=== PATIENT | female | born 1955 | race Caucasian/White ===

== ENCOUNTER 2022-03-17 10:37 | Observation (INO) | payer OTHER ==
[2022-03-17 10:57] LABS: Absolute Lymphocytes (CBC) 1.5 K/uL (0.7-4.9); Hematocrit 27.8 % (36.0-45.0); Lymphocytes % 25.4 % (15.3-44.8); MCV 88.4 fL (80-100); MPV 7.8 fL (7.6-11.3); RBC Red Blood Cell Count 3.15 M/uL (3.86-4.86)
[2022-03-17 11:03] LABS: Protime INR 1.12
--- NOTE | 2022-03-17 11:15 | RAD REPORT ---
EXAM DESCRIPTION: RAD - Chest Single View - 03/17/2022 11:05 am CLINICAL HISTORY: ams COMPARISON: None TECHNIQUE: AP portable chest image was obtained 03/17/2022 11:05 am in supine position. FINDINGS: No focal lung parenchymal process. Bilateral breast implants increased density over the lo wer lung flanagan. Lung volumes are shallow. A mild edema or infiltrate could be masked in this setting . Heart size is normal for supine portable imaging. No abnormal vascular engorgement. No measurable pleural effusion and no pneumothorax. No acute bony abnormality seen. No acute aortic findings suspected. IMPRESSION: No acute cardiopulmonary process. Exam limitations could mask a mild edema for infiltrate.
--- NOTE | 2022-03-17 11:17 | RAD REPORT ---
EXAM DESCRIPTION: CT - Head Brain Wo Cont - 03/17/2022 11:04 am CLINICAL HISTORY: Mental status change, unknown cause COMPARISON: No comparisons TECHNIQUE: Axial 5 mm thick images of the head were obtained without IV contrast. All CT scans are performed using dose optimization technique as appropriate and may include automated exposure control or mA/KV adjustment according to patient size. FINDINGS: No intracranial hemorrhage, mass, edema or shift of mid-line structures. No acute infarcti on changes seen. No cortical edema or sulcal effacement. Ventricles are normal. Minimal scattered chr onic ischemic changes are seen. No significant atrophy changes are noted. Arterial and physiologic ca lcifications are seen. Mastoid air cells and visualized portions of the paranasal sinuses are clear. No acute bony findings. Lateral left frontal bone craniotomy changes are present. IMPRESSION: No acute intracranial finding identifiable.
[2022-03-17 11:40] LABS: SARS-CoV-2 Antigen Rapid Res Negative (Negative)
[2022-03-17 11:43] LABS: ALT/SGPT 36 U/L (13-56); AST/SGOT 34 U/L (15-37); Albumin 3.4 g/dL (3.4-5.0); Alkaline Phosphatase 92 U/L (45-117); BUN Blood Urea Nitrogen 32 mg/dL (7-18); Bicarbonate 23 mmol/L (21-32); Bilirubin Direct 0.2 mg/dL (0-0.2); Bilirubin Total 0.6 mg/dL (0.2-1.0); Glomerular Filtration Rate 16 ml/min (=/>90); Glucose Level 127 mg/dL (74-106); Potassium 4.7 mmol/L (3.5-5.1); Protein, Total 7.2 g/dL (6.4-8.2); Sodium Level 129 mmol/L (136-145)
[2022-03-17 13:18] LABS: Barbiturates NEGATIVE (NEGATIVE); Benzodiazepines POSITIVE (NEGATIVE); Cocaine NEGATIVE (NEGATIVE); METHAMPHETAM NEGATIVE (NEGATIVE); Methadone NEGATIVE (NEGATIVE); Opiates NEGATIVE (NEGATIVE); Phencyclidine NEGATIVE (NEGATIVE); THC Cannibis NEGATIVE (NEGATIVE)
--- NOTE | 2022-03-17 13:48 | EDPHYS ---
Physician Documentation [facility] Name: Alisa Avina Age: 67 yrs Sex: Female : 1955 Arrival Date: 03/17/2022 Time: 10:43 Bed 18 Private MD: ED Physician Konstantin Mercado HPI: 03/17 10:44 This 67 yrs old Female presents to ER via Unassigned with complaints of altered mental ms3 status. 10:44 The patient presents with decreased responsiveness. Onset: The symptoms/episode ms3 began/occurred Patient was dropped off by [facility] at [facility] and staff noted patient to have decreased responsiveness. Possible causes: drug use, alcohol, has a history of chronic alcohol abuse. Associated signs and symptoms:. Current symptoms: In the emergency department the patient's symptoms are unchanged from the initial presentation, despite EMS interventions. 67-year-old female presents via [facility] from [facility]. EMS states patient was dropped off at rest was placed via Uber and intake staff noted patient to have decreased mental status. EMS was called. 2 mg intranasal Narcan was administered without improvement of patient's symptoms. While EMS in the exam room patient's addiction counselor called stating patient's drugs of choice are tramadol and alcohol.. Historical: - Allergies: 10:43 Unable to obtain; aa5 - Home Meds: 11:01 folic acid 1 mg Oral tab 1 tab once daily [Active]; lamotrigine 25 mg oral TbDi 1 tab aa5 once daily [Active]; lisinopril 10 mg Oral tab once daily [Active]; promethazine 25 mg Oral tab every 6hrs PRN [Active]; pantoprazole 40 mg oral grps 2 times per day [Active]; tizanidine 4 mg oral cap every 8 hours for muscle spasm [Active]; lamotrigine 200 mg oral tr24 BID [Active]; baclofen 10 mg oral tab 3 times per day [Active]; - PMHx: 10:43 Unable to Obtain; aa5 - PSHx: 10:43 Unable to Obtain; aa5 - Immunization history:: Adult Immunizations unknown. - Social history:: Smoking status: unknown. ROS: 10:44 Unable to obtain ROS due to altered mental status. ms3 Exam: 10:44 Constitutional: This is a well developed, well nourished patient who is awake, alert, ms3 and in no acute distress. Head/Face: Normocephalic, atraumatic. Neck: Trachea midline, no cervical lymphadenopathy. Supple, full range of motion without nuchal rigidity, or vertebral point tenderness. No Meningismus. Chest/axilla: Normal chest wall appearance and motion. Nontender with no deformity. Cardiovascular: Regular rate and rhythm with a normal S1 and S2. No gallops, murmurs, or rubs. Normal PMI, no JVD. No pulse deficits. Respiratory: Lungs have equal breath sounds bilaterally, clear to auscultation and percussion. No rales, rhonchi or wheezes noted. No increased work of breathing, no retractions or nasal flaring. Abdomen/GI: Soft, non-tender, with normal bowel sounds. No distension or tympany. No guarding or rebound. No evidence of tenderness throughout. 10:44 MS/ Extremity: Pulses equal, no cyanosis. Neurovascular intact. Full, normal range of motion. 10:44 Skin: Well-healed scars on bilateral wrists. 10:44 Neuro: Mentation: sleepy, responsive to pain, Motor: moves all fours, the no evidence of posturing, Deep tendon reflexes are normal, seizure activity, is not displayed by the patient, Abnormal movements: there are no abnormal movements. 11:53 ECG was reviewed by the Attending Physician. ms3 Vital Signs: 10:43 BP 120 / 75; Pulse 75; Resp 19 S; Temp 97.0(TE); Pulse Ox 94% on R/A; aa5 11:27 BP 133 / 84; Pulse 68; Resp 20; Pulse Ox 97% ; mb9 11:46 BP 126 / 79; Pulse 68; Resp 15; Pulse Ox 97% on R/A; mb9 12:30 BP 122 / 80; Pulse 68; Resp 16; Pulse Ox 98% on R/A; mb9 13:05 BP 116 / 77; Pulse 63; Resp 14; Pulse Ox 97% on R/A; mb9 14:11 BP 131 / 76; Pulse 68; Resp 13; Pulse Ox 97% on R/A; mb9 15:14 BP 139 / 82; Pulse 64; Resp 13; Pulse Ox 98% on R/A; mb9 MDM: 10:43 Patient medically screened. ms3 10:44 Differential Diagnosis: CVA, alcohol intoxication, overdose. ms3 13:48 Data reviewed: vital signs, nurses notes, lab test result(s), EKG, radiologic studies, ms3 and as a result, I will admit patient. Data interpreted: cardiac monitor technician: rate is 65 beats/min, rhythm is normal sinus rhythm, regular, with no ectopy, Interpretation: normal rate, normal rhythm. ED course: Case discussed with hospitalist and Dr Hood accepts patient. Patient remains in guarded condition at this time.. 03/17 10:44 Order name: Acetaminophen; Complete Time: 12:55 ms3 03/17 10:44 Order name: Basic Metabolic Panel; Complete Time: 12:55 ms3 03/17 10:44 Order name: CBC with Diff; Complete Time: 11:25 ms3 03/17 10:44 Order name: ETOH Level; Complete Time: 11:52 ms3 03/17 10:44 Order name: Hepatic Function; Complete Time: 12:55 ms3 03/17 10:44 Order name: PT-INR; Complete Time: 11:25 ms3 03/17 10:44 Order name: Ptt, Activated; Complete Time: 11:25 ms3 03/17 10:44 Order name: Salicylate; Complete Time: 12:55 ms3 03/17 10:44 Order name: Urine Drug Screen; Complete Time: 13:43 ms3 03/17 10:44 Order name: SARS RAPID; Complete Time: 11:52 ms3 03/17 15:24 Order name: Creatine Phosphokinase; Complete Time: 22:39 EDMS 03/17 15:24 Order name: Magnesium; Complete Time: 22:39 EDMS 03/17 15:24 Order name: NT PRO-BNP; Complete Time: 22:39 EDMS 03/17 15:24 Order name: Phosphorus; Complete Time: 22:39 EDMS 03/17 15:24 Order name: Urinalysis EDMS 03/17 15:24 Order name: Basic Metabolic Panel EDMS 03/17 15:24 Order name: Basic Metabolic Panel EDMS 03/17 15:24 Order name: CBC with Automated Diff EDMS 03/17 15:24 Order name: CBC with Automated Diff EDMS 03/18 05:52 Order name: Ammonia EDMS 03/18 06:10 Order name: Cortisol EDMS 03/18 06:27 Order name: NT PRO-BNP EDMS 03/18 06:27 Order name: T4 Free EDMS 03/18 06:27 Order name: Magnesium EDMS 03/18 06:27 Order name: Thyroid Stimulating Hormone EDMS 03/18 06:27 Order name: Iron EDMS 03/18 06:27 Order name: Folic Acid, (Folate) EDMS 03/18 06:27 Order name: Vitamin B12 Level EDMS 03/18 15:40 Order name: Basic Metabolic Panel EDMS 03/17 10:44 Order name: EKG; Complete Time: 10:45 ms3 03/17 10:44 Order name: EKG - Nurse/Tech; Complete Time: 10:57 ms3 03/17 10:44 Order name: IV Saline Lock; Complete Time: 10:51 ms3 03/17 10:44 Order name: Labs collected and sent; Complete Time: 10:51 ms3 03/17 10:44 Order name: Suicide Screening ([place]); Complete Time: 06:41 ms3 03/17 10:44 Order name: Urine Dipstick-Ancillary (obtain specimen); Complete Time: 12:47 ms3 03/17 10:48 Order name: CT Head Brain wo Cont; Complete Time: 11:25 ms3 03/17 10:49 Order name: CXR XRAY; Complete Time: 11:25 ms3 03/17 12:16 Order name: Straight Cath - Urine; Complete Time: 12:47 mb9 03/17 15:22 Order name: Regular EDMS 03/19 12:40 Order name: CBC with Automated Diff EDMS 03/19 13:00 Order name: CBC Smear Scan EDMS 03/19 15:12 Order name: Basic Metabolic Panel EDMS 03/19 15:12 Order name: Magnesium EDMS EC:53 Rate is 77 beats/min. Rhythm is regular. QRS [place] is Normal. RI interval is normal. QRS ms3 interval is normal. Clinical impression: Normal ECG. Interpreted by me. Reviewed by me. Administered Medications: No medications were administered Disposition: 13:50 Chart complete. ms3 Disposition Summary: 03/17/22 13:48 Hospitalization Ordered Hospitalization Status: Observation ms3 Provider: Juliet Hood ms3 Condition: Stable ms3 Problem: new ms3 Symptoms: are unchanged ms3 Bed/Room Type: Standard ms3 Location: [facility] ER HOLD(03/17/22 22:19) cg Room Assignment: ERHOLD-(03/17/22 22:19) cg Diagnosis - Altered mental status, unspecified ms3 - Adverse effect of benzodiazepines ms3 - Hypo-osmolality and hyponatremia ms3 - Acute Kidney Injury ms3 Forms: - Medication Reconciliation Form ms3 - SBAR form ms3 Signatures: Dispatcher [employer] EDMS Agustina Jordan, RN RN aa5 Kortney Ma RN RN cg Konstantin Mercado DO DO ms3 Sue Garcia PA-C PALoC sb4 Malou Renner RN RN mb9 Corrections: (The following items were deleted from the chart) 11:53 10:44 Urine Test ordered. ms3 ms3 15:37 12:55 Urine Dipstick-Ancillary reviewed. ms3 EDMS 19:49 13:48 Telemetry/MedSurg (observation) ms3 cg 19:49 13:48 ms3 cg 21:40 19:49 [facility] ER HOLD cg cg 21:40 19:49 ERHOLD- cg cg 22:01 21:40 cg cg 22:09 22:01 220 cg cg 22:19 21:40 Telemetry/MedSurg (observation) cg cg 22:19 22:09 cg cg
--- NOTE | 2022-03-17 13:48 | ER ---
Nurse's Notes [facility] Name: Alisa Avina Age: 67 yrs Sex: Female : 1955 Arrival Date: 03/17/2022 Time: 10:43 Bed 18 Private MD: Diagnosis: Altered mental status, unspecified;Adverse effect of benzodiazepines;Hypo-osmolality and hyponatremia;Acute Kidney Injury Presentation: 03/17 10:43 Chief complaint: EMS states: "pt was dropped off at [facility] in [place] [address] by [employer] truck driver supervisor and [facility] staff called 911 for AMS". EMS reports pt was only responsive to painful stimuli with spontaneous respirations upon their arrival, pt was given 2 mg Narcan Intranasal without any change. 10:43 Coronavirus screen: unable to complete. Ebola Screen: Unable to complete the [facility] because:. Initial Sepsis Screen: Does the patient meet any 2 criteria? No. Patient's initial sepsis screen is negative. Does the patient have a suspected source of infection? No. Patient's initial sepsis screen is negative. Risk Assessment: Do you want to hurt yourself or someone else? Unable to obtain. Onset of symptoms was March 17, 2022. 10:43 Acuity: USAMA 2 aa5 10:43 Method Of Arrival: EMS: [facility] aa 10:43 Care prior to arrival: Glucose check: 134. aa5 Historical: - Allergies: 10:43 Unable to obtain; aa5 - Home Meds: 11:01 folic acid 1 mg Oral tab 1 tab once daily [Active]; lamotrigine 25 mg oral TbDi 1 tab aa5 once daily [Active]; lisinopril 10 mg Oral tab once daily [Active]; promethazine 25 mg Oral tab every 6hrs PRN [Active]; pantoprazole 40 mg oral grps 2 times per day [Active]; tizanidine 4 mg oral cap every 8 hours for muscle spasm [Active]; lamotrigine 200 mg oral tr24 BID [Active]; baclofen 10 mg oral tab 3 times per day [Active]; - PMHx: 10:43 Unable to Obtain; aa5 - PSHx: 10:43 Unable to Obtain; aa5 - Immunization history:: Adult Immunizations unknown. - Social history:: Smoking status: unknown. Assessment: 10:50 Reassessment: Nasopharyngeal airway 26 persian inserted to right nare per Dr. Mercado. Pt mb9 became awake and is AAOx2 to person and place. 10:50 General: Behavior is. Pain: Unable to use pain scale. FLACC scale score is 0 out of 10. mb9 Neuro: Oriented to person, place, Speech is delayed and hard to understand. Pupils are Pupil Size: 1mm non-reactive, pinpoint. Cardiovascular: Heart tones S1 S2 present Rhythm is sinus rhythm. 10:50 Neuro: pt responds to painful stimuli . Respiratory: Airway is patent Respiratory mb9 effort is even, unlabored, Respiratory pattern is regular, snoring Breath sounds are clear bilaterally. Respiratory: GI: Abdomen is flat, non-distended. : No signs and/or symptoms were reported regarding the genitourinary system. EENT: No signs and/or symptoms were reported regarding the EENT system. Derm: Skin is pink, warm \\T\\ dry. Musculoskeletal: Range of motion: intact in all extremities. 11:01 Reassessment: Pt to CT via stretcher . aa5 11:44 Neuro: pt currently sleeping. Responds to painful stimuli . Cardiovascular: Rhythm is mb9 sinus rhythm. Respiratory: Airway is patent Respiratory effort is even, unlabored, Respiratory pattern is snoring. Derm: Skin is pink, warm \\T\\ dry. 13:06 Reassessment: pt currently sleeping. No snoring noted. Airway is patent, respirations mb9 are even and unlabored. Rhythm is regular. Skin is warm, pink, and dry. 14:10 Neuro: repsonds to painful stimuli. AAOx2 to name and place. Cardiovascular: Rhythm is mb9 sinus rhythm. Respiratory: Airway is patent Respiratory effort is even, unlabored, Respiratory pattern is snoring. Derm: Skin is pink, warm \\T\\ dry. 15:14 Neuro: responds to painful stimuli. AAOx2 to person and place. Respirations are even mb9 and unlabored, airway is patent, and pt snoring. Rhythm is regular. Skin is warm, pink, and dry. Vital Signs: 10:43 BP 120 / 75; Pulse 75; Resp 19 S; Temp 97.0(TE); Pulse Ox 94% on R/A; aa5 11:27 BP 133 / 84; Pulse 68; Resp 20; Pulse Ox 97% ; mb9 11:46 BP 126 / 79; Pulse 68; Resp 15; Pulse Ox 97% on R/A; mb9 12:30 BP 122 / 80; Pulse 68; Resp 16; Pulse Ox 98% on R/A; mb9 13:05 BP 116 / 77; Pulse 63; Resp 14; Pulse Ox 97% on R/A; mb9 14:11 BP 131 / 76; Pulse 68; Resp 13; Pulse Ox 97% on R/A; mb9 15:14 BP 139 / 82; Pulse 64; Resp 13; Pulse Ox 98% on R/A; mb9 ED Course: 10:43 Patient arrived in ED. ms3 10:43 Arm band placed on. aa5 10:44 Konstantin Mercado DO is Attending Physician. ms3 10:46 Missed attempt(s): 18 gauge in left EJ by Dr. Mercado. Bleeding controlled, band aid aa5 applied, catheter tip intact. 10:48 Inserted 18G to R EJ by Dr. Mercado. aa5 10:50 Malou Renner RN is Primary Nurse. mb9 10:50 Initial lab(s) drawn, by sd, sent to lab. Inserted saline lock: 20 gauge in right hand, aa5 using aseptic technique. Blood collected. 10:51 Acetaminophen Sent. mb9 10:51 Basic Metabolic Panel Sent. mb9 10:51 CBC with Diff Sent. mb9 10:51 ETOH Level Sent. mb9 10:51 Hepatic Function Sent. mb9 10:51 PT-INR Sent. mb9 10:51 Ptt, Activated Sent. mb9 10:51 Salicylate Sent. mb9 10:55 Triage completed. aa5 11:00 SARS RAPID Sent. mb9 11:00 EKG done, by ED staff, reviewed by Konstantin Mercado DO. mb9 11:05 CT Head Brain wo Cont In Process Unspecified. EDMS 11:07 CXR XRAY In Process Unspecified. EDMS 11:09 SARS RAPID Sent. mb9 12:40 Straight cath inserted, using sterile technique, 16 Fr. Specimen obtained. Returned aa5 clear yellow urine. Patient tolerated well. 13:47 Juliet Hood MD is Hospitalizing Provider. ms3 Administered Medications: No medications were administered Medication: 11:28 VIS not applicable for this client. mb9 Outcome: 13:48 Decision to Hospitalize by Provider. ms3 03/19 16:39 Patient left the ED. vg1 Signatures: Dispatcher [employer] EDMS Agustina Jordan, RN RN aa5 Skylar Ma RN RN vg1 Konstantin Mercado DO DO ms3 Malou Renner, RN RN mb9 Corrections: (The following items were deleted from the chart) 03/17 11:27 11:23 General: Behavior is mb9 [email or web address] 14:34 11:27 BP 133 / 84; Pulse 68bpm; Resp 20bpm; Pulse Ox 97% RA; mb9 mb9 14:35 10:50 Reassessment: Nasopharyngeal airway 30 persian inserted to right nare per Dr. kaylene Mercado. Pt became awake and is AAOx2 to person and place. mb9
--- NOTE | 2022-03-17 14:34 | EKG ---
Test Date: 2022-03-17 Test Time: 10:56:46 Switchboard Receptionist: MB MEASUREMENT RESULTS: Intervals: Rate: 77 DE: 130 QRSD: 86 QT: 400 QTc: 452 [place]: P: 71 DE: 130 QRS: 83 T: 81 INTERPRETIVE STATEMENTS: Normal sinus rhythm Normal ECG No previous ECG available for comparison Electronically Signed On 03-17-22 14:33:17 [employer] by Tye Valentino
[2022-03-17] MEDS ORDERED: ACETAMINOPHEN 325 MG TABLET PO PRN (15:16)
[2022-03-17] MEDS ORDERED: ONDANSETRON 4 MG/2 ML VIAL IV PRN (15:20)
--- NOTE | 2022-03-17 15:27 | P.HP ---
Certification for Inpatient Patient admitted to: Observation With expected LOS: <2 Midnights Patient will require the following post-hospital care: None Practitioner: I am a practitioner with admitting privileges, knowledge of patient current condition, hospital course, and medical plan of care. Services: Services provided to patient in accordance with Admission requirements found in Title 42 Section 412.3 of the Code of Federal Regulations Patient History Date of Service: 03/18/22 Reason for admission: Altered mental status History of Present Illness: Patient is a 67-year-old female with a past medical history significant for drug abuse, GERD, hypertension, alcohol abuse who presents with complaint of altered mental status. Patient was dropped off by a Uber mechanic driver at her drug rehab facility. Staff at facility noted that patient was unresponsive and altered. Patient is AAP x2, confused and unable to provide any history. No other signs or symptoms reported. Symptoms are aggravated or relieved by nothing. EMS was called and patient was brought to the hospital for medical evaluation. Allergies Unable to Assess Allergy (Unverified 03/17/22 18:04) - Past Medical/Surgical History -: HTN -: GERD -: Alcohol Abuse Past Surgical History: Reviewed- Non-Contributory - Family History Family History: Reviewed- Non-Contributory - Social History Smoking Status: Unknown if ever smoked Alcohol use: Yes CD- Drugs: Yes Caffeine use: Yes Place of Residence: Home Review of Systems is unable to be obtained (Patient is confused) Physical Examination - Physical Exam General: Oriented x2, Confused HEENT: Atraumatic, Normocephalic, PERRLA Neck: Supple, JVD not distended, Without JVD or thyroid abnormality Respiratory: Clear to auscultation bilaterally, Normal air movement Cardiovascular: No edema, Normal pulses, Regular rate/rhythm Capillary refill: <2 Seconds Gastrointestinal: Normal bowel sounds, Soft and benign, No ascites, No tenderness Musculoskeletal: No clubbing, No swelling Integumentary: No rashes, No breakdown, No significant lesion, No tenderness/swelling Neurological: Normal speech, Normal tone, Normal affect Lymphatics: No axilla or inguinal lymphadenopathy - Studies Laboratory Data (last 24 hrs) 03/17/22 10:50: PT 12.3, INR 1.12, APTT 27.5 03/17/22 10:50: WBC 5.80, Hgb 9.6 L, Hct 27.8 L, Plt Count 103 L 03/17/22 10:50: Sodium 129 L, Potassium 4.7, BUN 32 H, Creatinine 3.05 H, Glucose 127 H, Total Bilirubin 0.6, AST 34, ALT 36, Alkaline Phosphatase 92 Assessment and Plan - Plan --Altered mental status. Likely secondary to drug abuse. Per medical record and report from nursing staff, patient's drug of choice is tramadol and benzos. CT head unremarkable for any acute intracranial abnormality. Continue supportive care -- Chronic alcohol abuse. Patient currently attending drug rehab facility. Patient placed on banana bag. Continue Alcohol withdrawal assessment. --Anemia of chronic disease. H&H stable. We will continue to monitor hemoglobin and transfuse if less than 7.0. --LOBO. Likely prerenal secondary to dehydration. Continue IV hydration. Nephrology consulted. We will await further recommendations. --Hyponatremia. Likely secondary to alcohol abuse. Crank Hand on board. Further management per rolloff driver. --Thrombocytopenia. Unclear etiology. Continue supportive care. --HTN. Stable. Will manage BP with hydralazine prn --GERD. Continue protonix --DVT prophylaxis with SCDs. Discharge Plan: Home Plan to discharge in: 48 Hours - Advance Directives Does patient have a Living Will: No Does patient have a Durable POA for Healthcare: No - Code Status/Comfort Care Code Status Assessed: Yes Physician Review: Patient Assessed, Agree with Above Assessment and Plan Critical Care: No
[2022-03-17] MEDS: ASPIRIN 81 MG CHEWABLE TABLET PO SCH (16:00)
[2022-03-17] MEDS: FOLIC ACID 1 MG, MULTIVITAMINS INJ 10 ML, THIAMINE HCL 100 MG in NA CHLORIDE 0.9% 1,000 ML IV SCH (16:00)
[2022-03-17 18:07] LABS: Magnesium 1.9 mg/dL (1.6-2.4); Phosphorus 4.4 mg/dL (2.5-4.9)
[2022-03-17 18:15] VITALS: BMI 21.9
[2022-03-17] MEDS ORDERED: HEPARIN 5000 UNIT/ML 1 ML VIAL SQ SCH (21:00)
[2022-03-17] MEDS ORDERED: HEPARIN 5000 UNIT/ML 1 ML VIAL ONE (21:22)
--- NOTE | 2022-03-17 21:59 | P.CNS ---
Date of Consult: 03/17/22 Reason for Consult: LOBO/ Hyponatremia Requesting Physician: Juliet Hood Chief Complaint: AMS History of Present Illness: [facility] 10:44 This 67 yrs old Female presents to ER via Unassigned with complaints of altered mental ms3 status. 10:44 The patient presents with decreased responsiveness. Onset: The symptoms/episode ms3 began/occurred Patient was dropped off by [place] at [facility] ([place] and staff noted patient to have decreased responsiveness. Possible causes: drug use, alcohol, has a history of chronic alcohol abuse. Associated signs and symptoms:. Current symptoms: In the emergency department the patient's symptoms are unchanged from the initial presentation, despite EMS interventions. 67-year-old female presents via [facility] from [facility] ([place] EMS states patient was dropped off at rest was placed via [employer] and intake staff noted patient to have decreased mental status. EMS was called. 2 mg intranasal Narcan was administered without improvement of patient's symptoms. While EMS in the exam room patient's addiction counselor called stating patient's drugs of choice are tramadol and alcohol.. [facility] 10:43 Chief complaint: EMS states: "pt was dropped off at [facility] in [place] by [employer] truck driver and [facility] staff called 911 for AMS". EMS reports pt was only responsive to painful stimuli with spontaneous respirations upon their arrival, pt was given 2 mg Narcan Intranasal without any change. 10:43 Coronavirus screen: unable to complete. Ebola Screen: Unable to complete the Ebola 5 screening because:. Initial Sepsis Screen: Does the patient meet any 2 criteria? No. Patient's initial sepsis screen is negative. Does the patient have a suspected source of infection? No. Patient's initial sepsis screen is negative. Risk Assessment: Do you want to hurt yourself or someone else? Unable to obtain. Onset of symptoms was March 17, 2022. 10:43 Acuity: USAMA Limited HPI/ ROS due to AMS Allergies Unable to Assess Allergy (Unverified 03/17/22 18:04) Home medications list reviewed: No Review of Systems is unable to be obtained Physical Examination Temp Pulse Resp BP Pulse Ox 97.7 F 62 14 117/75 100 03/17/22 20:00 03/17/22 20:00 03/17/22 20:00 03/17/22 20:00 03/17/22 20:00 General: In no apparent distress HEENT: Atraumatic Neck: Supple Respiratory: Clear to auscultation bilaterally Cardiovascular: No edema, Regular rate/rhythm Gastrointestinal: Non-distended Musculoskeletal: No clubbing, No contractures Integumentary: No rashes, No cyanosis Neurological: Normal speech Laboratory Data (last 24 hrs) 03/17/22 10:50: PT 12.3, INR 1.12, APTT 27.5 03/17/22 10:50: WBC 5.80, Hgb 9.6 L, Hct 27.8 L, Plt Count 103 L 03/17/22 10:50: Sodium 129 L, Potassium 4.7, BUN 32 H, Creatinine 3.05 H, Glucose 127 H, Total Bilirubin 0.6, AST 34, ALT 36, Alkaline Phosphatase 92 Imagings Data: Pounce EXAM DESCRIPTION: RAD - Chest Single View - 03/17/2022 11:05 am CLINICAL HISTORY: ams COMPARISON: None TECHNIQUE: AP portable chest image was obtained 03/17/2022 11:05 am in supine position. FINDINGS: No focal lung parenchymal process. Bilateral breast implants increased density over the lower lung flanagan. Lung volumes are shallow. A mild edema or infiltrate could be masked in this setting. Heart size is normal for supine portable imaging. No abnormal vascular engorgement. No measurable pleural effusion and no pneumothorax. No acute bony abnormality seen. No acute aortic findings suspected. IMPRESSION: No acute cardiopulmonary process. Exam limitations could mask a mild edema for infiltrate. Conclusions/Impression: LOBO likely due to hypovolemia Baseline unclear -No NSAIDs -Continue IVF Hyponatremia -Continue IVF with NS Hyperglycemia -No sugar diet Anemia in chronic illness Thrombocytopenia -Monitor CBC Toxic metabolic encephalopathy -Continue supportive care Thank you kindly for the consultation
[2022-03-17] MEDS ORDERED: NA CHLORIDE 0.9% 1,000 ML IV SCH (22:00)
[2022-03-17] MEDS ORDERED: NA CHLORIDE 0.9% 1,000 ML ONE (22:35)
[2022-03-18] MEDS ORDERED: SODIUM CHLORIDE 0.9% 10ML INJ IV PRN (02:30)
[2022-03-18] MEDS ORDERED: LORazepam 2 MG/ML VIAL ONE ×4 (02:33→21:41)
[2022-03-18] MEDS: LORazepam 2 MG/ML VIAL IV PRN ×3 (02:37→21:35)
[2022-03-18] MEDS ORDERED: HYDRALAZINE HCL 20 MG/ML VIAL IV PRN (02:42)
[2022-03-18] MEDS ORDERED: ACETAMINOPHEN 325 MG TABLET PO PRN (02:45)
[2022-03-18] MEDS ORDERED: NICOTINE 21 MG/PAT TD ONE (04:30)
[2022-03-18] MEDS: NICOTINE 21 MG/PAT TD PRN (04:40)
[2022-03-18] MEDS ORDERED: ACETAMINOPHEN 500 MG TAB PO ONE (04:44)
[2022-03-18] MEDS ORDERED: BACLOFEN 10 MG TAB PO PRN (04:44)
[2022-03-18] MEDS ORDERED: ACETAMINOPHEN 500 MG TAB ONE (05:14)
[2022-03-18] MEDS ORDERED: TIZANIDINE 4 MG TABLET ONE ×2 (05:18→21:47)
[2022-03-18] MEDS: TIZANIDINE 4 MG TABLET PO SCH ×3 (05:30→21:00)
[2022-03-18 05:59] LABS: Absolute Lymphocytes (CBC) 0.8 K/uL (0.7-4.9); Hematocrit 30.7 % (36.0-45.0); MCV 88.7 fL (80-100); RBC Red Blood Cell Count 3.46 M/uL (3.86-4.86)
[2022-03-18 06:27] LABS: Folic Acid, (Folate) > 20.0 ng/mL (3.1-17.5); Magnesium 1.9 mg/dL (1.6-2.4); NT PRO-BNP 152 pg/mL (<125)
[2022-03-18] MEDS ORDERED: ASPIRIN 81 MG CHEWABLE TABLET ONE (07:49)
[2022-03-18] MEDS ORDERED: PANTOPRAZOLE 40 MG INJ ONE (07:50)
[2022-03-18] MEDS ORDERED: INFLUENZA VACCINE (for 6+ mo) 0.5 ML DOSE IMVAC ONE ×2 (08:00→09:09)
[2022-03-18] MEDS: ASPIRIN 81 MG CHEWABLE TABLET PO SCH (08:59)
[2022-03-18] MEDS ORDERED: lisinopriL 10 MG TAB PO SCH (09:00)
[2022-03-18] MEDS: FOLIC ACID 1 MG, MULTIVITAMINS INJ 10 ML, THIAMINE HCL 100 MG in NA CHLORIDE 0.9% 1,000 ML IV SCH (09:00)
[2022-03-18] MEDS: PANTOPRAZOLE 40 MG INJ IVP SCH (09:00)
[2022-03-18] MEDS ORDERED: BACLOFEN 10 MG TAB PO SCH (09:00)
[2022-03-18] MEDS ORDERED: NA CHLORIDE 0.9% 500 ML IV ONE (12:57)
--- NOTE | 2022-03-18 14:46 | P.PN ---
Nephrology note: (S) Pt reports feeling better, renal function improving with hydration, pt remains concerned about ability to get into detox/recovery facility post discharge (O) Vitals reviewed in the EMR General: In no apparent distress HEENT: Atraumatic Neck: Supple Respiratory: Clear to auscultation bilaterally Cardiovascular: No edema, Regular rate/rhythm Gastrointestinal: Non-distended, soft, NT Musculoskeletal: No clubbing, No contractures Integumentary: No rashes, No cyanosis Neurological: Normal speech, awake, alert, no tremors noted Laboratory Data (last 24 hrs) Reviewed Conclusions/Impression: Stage II LOBO 2nd to pre-renal azotemia, vol depletion, concurrent ACEI use +/- other -Cr level downward trending with IVF hydration. No NSAIDs Hyponatremia, hypovolemic -Resolved with isotonic IVF hydration Essential HTN -Keep off ACEi, trend BP for now. Kalpesh Bojorquez MD, CHAN
[2022-03-18 15:40] LABS: Potassium 4.4 mmol/L (3.5-5.1)
[2022-03-18] MEDS ORDERED: PNEUMOCOCCAL VACCINE 0.5 ML IMVAC ONE (16:00)
[2022-03-19 01:01] VITALS: O2SAT 91
[2022-03-19] MEDS ORDERED: LORazepam 2 MG/ML VIAL ONE ×2 (01:39→06:27)
[2022-03-19] MEDS: LORazepam 2 MG/ML VIAL IV PRN ×2 (01:45→06:40)
[2022-03-19] MEDS: TIZANIDINE 4 MG TABLET PO SCH ×2 (05:00→13:00)
[2022-03-19 08:25] VITALS: TEMP 98.8
[2022-03-19] MEDS: cloNIDine HCL 0.1 MG TAB PO ONE ×2 (08:25→09:00)
[2022-03-19] MEDS ORDERED: cloNIDine HCL 0.1 MG TAB ONE (08:26)
--- NOTE | 2022-03-19 08:41 | P.PN ---
Date of Service: 03/18/22 Subjective Pt is more awake and alert; appears manic because she doesn't have a place to go Physical Examination - Vitals reviewed - Physical Exam General: Oriented x2, Confused Respiratory: Clear to auscultation bilaterally, Normal air movement Cardiovascular: No edema, Normal pulses, Regular rate/rhythm Gastrointestinal: Normal bowel sounds, Soft and benign, No ascites, No tenderness Musculoskeletal: No clubbing, No swelling Integumentary: No rashes, No breakdown, No significant lesion, No tenderness/swelling Neurological: Normal speech, Normal tone, Normal affect Assessment and Plan - Plan -- Chronic alcohol abuse. Patient currently attending drug rehab facility. Stable for DC --Anemia of chronic disease. H&H stable. --LOBO. resolved --Hyponatremia. stable --Thrombocytopenia. Hepatic congestion --HTN. elevated; better BP control --GERD. Continue protonix --DVT prophylaxis with SCDs.
[2022-03-19] MEDS: FOLIC ACID 1 MG, MULTIVITAMINS INJ 10 ML, THIAMINE HCL 100 MG in NA CHLORIDE 0.9% 1,000 ML IV SCH (08:43)
[2022-03-19] MEDS: PANTOPRAZOLE 40 MG INJ IVP SCH (09:00)
[2022-03-19] MEDS: ASPIRIN 81 MG CHEWABLE TABLET PO SCH (09:00)
[2022-03-19] MEDS ORDERED: METOPROLOL TAR 50 MG TAB PO SCH (09:00)
[2022-03-19] MEDS: chlordiazePOXIDE HCl 5 MG CAP PO SCH ×2 (09:00→14:00)
[2022-03-19] MEDS ORDERED: METOPROLOL TAR 50 MG TAB ONE (09:42)
[2022-03-19] MEDS ORDERED: ASPIRIN 81 MG CHEWABLE TABLET ONE (09:42)
[2022-03-19] MEDS ORDERED: PANTOPRAZOLE 40 MG INJ ONE (09:43)
[2022-03-19] MEDS ORDERED: chlordiazePOXIDE HCl 5 MG CAP PO ONE ×2 (10:27→14:17)
[2022-03-19] MEDS ORDERED: NA CHLORIDE 0.9% 500 ML IV ONE (11:42)
[2022-03-19 12:34] VITALS: BP 132/95
[2022-03-19 12:37] LABS: Absolute Lymphocytes (CBC) 0.7 K/uL (0.7-4.9); Hematocrit 29.2 % (36.0-45.0); Lymphocytes % 19.1 % (15.3-44.8); MCV 91.6 fL (80-100); MPV 8.1 fL (7.6-11.3); RBC Red Blood Cell Count 3.19 M/uL (3.86-4.86)
[2022-03-19] MEDS ORDERED: NA CHLORIDE 0.9% 500 ML ONE (12:38)
[2022-03-19 12:59] LABS: Blood Morphology Comment NOT SEEN (NOT SEEN); Platelet Estimate DECR; White Blood Cell Scan OK (OK)
--- NOTE | 2022-03-19 13:49 | P.PN ---
Date of Service: 03/19/22 Subjective Was able to speak with Megha Bruner. They really do not have a room for patient to go to at least until Wednesday. We will speak with social media marketing manager about her going to a fdc in the meantime. Medically she is doing well and stable for discharge. As we get arrangements made by social media marketing manager for fdc placement we will plan to discharge home. Physical Examination - Vitals reviewed - Physical Exam General: Awake and alert, Oriented x3, Respiratory: Clear to auscultation bilaterally, Normal air movement Cardiovascular: No edema, Normal pulses, Regular rate/rhythm Gastrointestinal: Normal bowel sounds, Soft and benign, No ascites, No tenderness Musculoskeletal: No clubbing, No swelling Integumentary: No rashes, No breakdown, No significant lesion, No tenderness/swelling Neurological: Normal speech, Normal tone, Normal affect Assessment and Plan - Assessment/Plan --Chronic alcohol abuse. Patient without bed assignment until Wednesday to drug rehab facility. Stable for DC medically if BP improves --Anemia of chronic disease. H&H stable. --LOBO. resolved --Hyponatremia. stable --Thrombocytopenia. stable --HTN. elevated; better BP control --GERD. Continue protonix --DVT prophylaxis with SCDs.
[2022-03-19] MEDS ORDERED: NICOTINE 21 MG/PAT TD ONE (13:55)
[2022-03-19] MEDS: NICOTINE 21 MG/PAT TD PRN (14:11)
[2022-03-19 15:10] LABS: Magnesium 1.7 mg/dL (1.6-2.4); Potassium 3.8 mmol/L (3.5-5.1)
--- NOTE | 2022-03-19 20:40 | P.PN ---
Date of Service: 03/19/22 Vital Signs Temp Pulse Resp BP Pulse Ox 98.8 F 87 14 132/95 H 97 03/19/22 08:00 03/19/22 12:00 03/19/22 12:00 03/19/22 12:00 03/19/22 12:00 Assessment/ Plan: Nephrology No dyspnea No chest pain No acute events overnight Vitals, medications, blood work and imaging reviewed in the chart. General: In no apparent distress HEENT: Atraumatic Neck: Supple Respiratory: Clear to auscultation bilaterally Cardiovascular: No edema, Regular rate/rhythm Gastrointestinal: Non-distended Musculoskeletal: No clubbing, No contractures Integumentary: No rashes, No cyanosis Neurological: Normal speech Laboratory Data (last 24 hrs) 03/17/22 10:50: PT 12.3, INR 1.12, APTT 27.5 03/17/22 10:50: WBC 5.80, Hgb 9.6 L, Hct 27.8 L, Plt Count 103 L 03/17/22 10:50: Sodium 129 L, Potassium 4.7, BUN 32 H, Creatinine 3.05 H, Glucose 127 H, Total Bilirubin 0.6, AST 34, ALT 36, Alkaline Phosphatase 92 [facility] EXAM DESCRIPTION: RAD - Chest Single View - 03/17/2022 11:05 am CLINICAL HISTORY: ams COMPARISON: None TECHNIQUE: AP portable chest image was obtained 03/17/2022 11:05 am in supine position. FINDINGS: No focal lung parenchymal process. Bilateral breast implants increased density over the lower lung flanagan. Lung volumes are shallow. A mild edema or infiltrate could be masked in this setting. Heart size is normal for supine portable imaging. No abnormal vascular engorgement. No measurable pleural effusion and no pneumothorax. No acute bony abnormality seen. No acute aortic findings suspected. IMPRESSION: No acute cardiopulmonary process. Exam limitations could mask a mild edema for infiltrate. Conclusions/Impression: Stage II LOBO likely due to hypovolemia Baseline unclear -No NSAIDs -Improved with IVF Hypovolemic Hyponatremia -Improved with IVF HTN with CKD -Consider Coreg -Clonidine prn IFG with Hyperglycemia -No sugar diet Anemia in chronic illness Thrombocytopenia -Monitor CBC Toxic metabolic encephalopathy, resolved Chronic alcohol abuse -Continue supportive care
== END 2022-03-19 16:15 | disposition home or self-care (01) ==
LOC: ER 10:37 → ERHOLD 15:15 → 2ND 22:02 → ERHOLD 03-18 00:26
PROVIDERS: ADMIT Hospitalist; ATTEND Hospitalist
DX: F10.20 Alcohol dependence, uncomplicated (principal); T42.4X5A Adverse effect of benzodiazepines, initial encounter; N17.9 Acute kidney failure, unspecified; R79.89 Other specified abnormal findings of blood chemistry; R73.9 Hyperglycemia, unspecified; G92.8 Other toxic encephalopathy; E87.1 Hypo-osmolality and hyponatremia; E86.0 Dehydration; I10 Essential (primary) hypertension; K21.9 Gastro-esophageal reflux disease without esophagitis; F19.10 Other psychoactive substance abuse, uncomplicated; D63.1 Anemia in chronic kidney disease; D69.6 Thrombocytopenia, unspecified; E86.1 Hypovolemia; I12.9 Hypertensive chronic kidney disease with stage 1 through stage 4 chronic kidney disease, or unspecified chronic kidney disease; N18.9 Chronic kidney disease, unspecified; Z20.822 Contact with and (suspected) exposure to COVID-19; Z23 Encounter for immunization
CPT/HCPCS: 93005; 85025 ×3; 80048 ×4; 36415 ×3; 80320; 82140; 83735 ×3; 82550; 80329 ×2; 84100; 85610; 80076; 85730; 84443; 84439; 82746; 82607; 83540; 82533; 83880 ×2; 80307; 70450; 71045; 90471; 51702; 99284; 87811; J3411 ×2; J1644; Q2035; C9113 ×2; G0378 ×5; J7040; J7030 ×3

== ENCOUNTER 2023-07-22 14:09 | Emergency (ER) | payer OTHER ==
[2023-07-22] MEDS ORDERED: ONDANSETRON 4 MG/2 ML VIAL ONE ×2 (14:25→18:08)
[2023-07-22] MEDS ORDERED: MORPHINE 4 MG/ML SYR ONE (14:25)
[2023-07-22] MEDS ORDERED: NA CHLORIDE 0.9% 1,000 ML ONE ×2 (14:25→16:58)
[2023-07-22 15:24] LABS: Specific Gravity < 1.005 (1.005-1.030); Sqamous Epithelial None Seen /HPF (None Seen); Urine Bacteria <20 /HPF (<20); Urine Bilirubin NEGATIVE (Negative); Urine Blood 1+ (Negative); Urine Clarity Clear (Clear); Urine Color Colorless (Yellow); Urine Culture Reflex Order NOT NEEDED; Urine Glucose NEGATIVE (Negative); Urine Ketones NEGATIVE (Negative); Urine Microscopic Reflex YN ORDER UMIC; Urine Nitrite NEGATIVE (Negative); Urine Protein NEGATIVE (Negative); Urine RBC <5 /HPF (None Seen); Urine Urobilinogen Normal (Normal); Urine WBC <5 /HPF (<5); Urine pH 6.5 (5.0-7.0)
[2023-07-22 15:27] LABS: Absolute Lymphocytes (CBC) 0.9 K/uL (0.7-4.9); Absolute Monocytes 0.4 K/uL (0.1-1.3); Absolute Neutrophil 3.2 K/uL (1.8-8.0); Basophils % 0.4 % (0-1.3); Eosinophils % 0.9 % (0-4.4); Hematocrit 32.3 % (36.0-45.0); Hemoglobin 10.7 g/dL (12.0-15.0); Lymphocytes % 19.7 % (15.3-44.8); MCH 28.7 pg (27.0-35.0); MCHC 33.1 g/dL (32.0-36.0); MCV 86.7 fL (80-100); MPV 8.6 fL (7.6-11.3); Monocytes % 8.8 % (3.3-12.3); Neutrophils % 70.2 % (41.7-73.7); Platelets 80 thou/uL (152-406); RBC Red Blood Cell Count 3.72 M/uL (3.86-4.86); Red Cell Distribution Width 14.7 % (12.1-15.2)
[2023-07-22 15:29] LABS: Albumin 3.1 g/dL (3.4-5.0); Albumin/Globulin Ratio 0.8 (1.1-1.8); Anion Gap 9.3 mEq/L (5.0-15.0); Bilirubin Total 0.3 mg/dL (0.2-1.0); Globulin 3.7 g/dL (2.3-3.5); Potassium 3.3 mEq/L (3.5-5.1); Protein, Total 6.8 g/dL (6.4-8.2)
--- NOTE | 2023-07-22 16:48 | RAD REPORT ---
EXAM DESCRIPTION: CT - Abdomen Pelvis W Contrast - 07/22/2023 4:21 pm CLINICAL HISTORY: Abdominal pain COMPARISON: none. TECHNIQUE: Computed axial tomography of the abdomen pelvis was obtained. 100 cc Isovue-300 was admin istered intravenously. Oral contrast was not requested which limits evaluation of bowel and appendix All CT scans are performed using dose optimization technique as appropriate and may include automated exposure control or mA/KV adjustment according to patient size. FINDINGS: Cholecystectomy Mildly cirrhotic liver. Portal vein is distended patent. Mild left upper quadrant varices. Spleen 15.5 centimeters Right renal low to intermediate density mass Hounsfield unit 33. 6 millimeter left renal low to intermediate density mass Hounsfield units 33. Small right renal cyst. Normal appendix. No adnexal mass There is no evidence of diverticulitis. Mild dilatation of a loop of jejunum IMPRESSION: Cirrhosis with mild to moderate splenomegaly Bilateral renal masses do not represent simple cysts. They may represent benign complex cyst or cysti c neoplasms. It is recommended that the patient have an unenhanced CT scan of the kidneys. This would then be compared to this exam to determine if there is abnormal enhancement to suggest neoplasm Mild dilatation of a loop of jejunum may indicate enteritis.
[2023-07-22] MEDS ORDERED: LOPERAMIDE HCL 2 MG CAPSULE ONE (16:58)
[2023-07-22] MEDS ORDERED: DICYCLOMINE HCL 20 MG/2 ML AMP IM ONE (18:08)
--- NOTE | 2023-07-22 19:29 | ER ---
Nurse's Notes [facility] Name: Alisa Avina Age: 68 yrs Sex: Female : 1955 Arrival Date: 07/22/2023 Time: 14:09 Bed 12 Private MD: Diagnosis: Other viral enteritis Presentation: 07/21 14:12 Chief complaint: EMS states: "Toned out for abdominal pain, N/V that started today". mb9 Coronavirus screen: At this time, the client does not indicate any symptoms associated with coronavirus-19. Ebola Screen: No symptoms or risks identified at this time. Initial Sepsis Screen: Does the patient meet any 2 criteria? No. Patient's initial sepsis screen is negative. Does the patient have a suspected source of infection? No. Patient's initial sepsis screen is negative. Risk Assessment: Do you want to hurt yourself or someone else? Patient reports no desire to harm self or others. Onset of symptoms was July 22, 2023. 14:12 Acuity: USAMA 3 mb9 14:12 Method Of Arrival: EMS: [facility] mb9 Triage Assessment: 14:13 General: Appears in no apparent distress. Behavior is cooperative. Pain: Complains of mb9 pain in abdomen Pain does not radiate. Pain currently is 8 out of 10 on a pain scale. Quality of pain is described as sharp, shooting, throbbing, Pain began suddenly. EENT: No signs and/or symptoms were reported regarding the EENT system. Neuro: Kent Agitation-Sedation Scale (RASS): 0 - Alert and Calm Level of Consciousness is awake, alert, obeys commands, Oriented to person, place, time, situation, Appropriate for age. Cardiovascular: Patient's skin is warm and dry. Respiratory: Airway is patent Respiratory effort is even, unlabored, Respiratory pattern is regular, symmetrical. GI: Abdomen is round non-distended, Bowel sounds present X 4 quads. Abd is soft X 4 quads Abdomen is tender to palpation X 4 quads. Reports nausea, vomiting. : No signs and/or symptoms were reported regarding the genitourinary system. Derm: Skin is pink, warm \\T\\ dry. Musculoskeletal: Range of motion: intact in all extremities. Historical: - Allergies: 14:11 No Known Allergies; mb9 - Home Meds: 14:11 lisinopril 10 mg Oral tab once daily [Active]; mb9 - PMHx: 14:11 Hypertensive disorder; mb9 - PSHx: 14:11 Cholecystectomy; mb9 - Immunization history:: Adult Immunizations up to date. - Infectious Disease History:: Denies. - Social history:: Smoking status: Patient denies any tobacco usage or history of. Screenin:15 [facility] ED Fall Risk Assessment (Adult) History of falling in the last 3 months, mb9 including since admission No falls in past 3 months (0 pts) Confusion or Disorientation No (0 pts) Intoxicated or Sedated No (0 pts) Impaired Gait No (0 pts) Mobility Assist Device Used No (0 pt) Altered Elimination No (0 pt) Score/Fall Risk Level 0 - 2 = Low Risk Oriented to surroundings, Maintained a safe environment, Educated pt \\T\\ family on fall prevention, incl call for assistance when getting out of bed. Abuse screen: Denies threats or abuse. Nutritional screening: No deficits noted. Tuberculosis screening: No symptoms or risk factors identified. Assessment: 14:14 Reassessment: see triage assessment. mb9 14:48 Reassessment: Unable to get IV access at this time. Charge nurse notified. mb9 16:22 Reassessment: No changes from previously documented assessment. Patient and/or family mb9 updated on plan of care and expected duration. Pain level reassessed. Patient is alert, oriented x 3, equal unlabored respirations, skin warm/dry/pink. 17:01 Reassessment: No changes from previously documented assessment. Patient and/or family mb9 updated on plan of care and expected duration. Pain level reassessed. Patient is alert, oriented x 3, equal unlabored respirations, skin warm/dry/pink. 18:00 Pain: Complains of pain in abdomen Pain currently is 8 out of 10 on a pain scale. mb9 Quality of pain is described as throbbing. 18:29 Reassessment: Patient states feeling better. Patient states symptoms have improved. mb9 19:44 Reassessment: Patient and/or family updated on plan of care and expected duration. Pain mb9 level reassessed. Patient is alert, oriented x 3, equal unlabored respirations, skin warm/dry/pink. Patient states feeling better. Patient states symptoms have improved. Vital Signs: 14:12 BP 166 / 91; Pulse 88; Resp 18; Temp 98.2(O); Pulse Ox 100% ; Weight 63.5 kg; Height 5 mb9 ft. 4 in. ; Pain 8/10; 15:26 BP 140 / 86; Pulse 90; Resp 18; Pulse Ox 100% on R/A; mb9 17:01 BP 145 / 87; Pulse 84; Resp 18; Pulse Ox 100% on R/A; mb9 18:43 BP 150 / 92; Pulse 95; Resp 18; Pulse Ox 100% on R/A; mb9 19:44 BP 160 / 88; Pulse 92; Resp 16; Pulse Ox 100% on R/A; mb9 14:12 Body Mass Index 24.03 (63.50 kg, 162.56 cm) mb9 14:12 Pain Scale: Adult mb9 ED Course: 14:09 Patient arrived in ED. sb4 14:10 Sue Garcia PA-C is PHCP. sb4 14:10 Elian Carbajal MD is Attending Physician. sb4 14:10 Malou Renner, CHEYANNE is Primary Nurse. mb9 14:11 Arm band placed on. mb9 14:13 Triage completed. mb9 14:14 Placed in gown. Bed in low position. Call light in reach. Side rails up X 1. Provided mb9 Education on: press call light if needing anything. Client placed on continuous cardiac and pulse oximetry monitoring. NIBP monitoring applied. Door closed. Noise minimized. Warm blanket given. 14:15 No provider procedures requiring assistance completed. mb9 14:41 CBC with Diff Sent. as6 14:41 CMP Sent. as6 14:41 Lipase Sent. as6 15:15 Urinalysis w/ reflexes Sent. mb9 15:26 Inserted saline lock: 22 gauge in right forearm, using aseptic technique. mb9 15:26 Thermoregulation: warm blanket given to patient. mb9 16:23 CT Abd/Pelvis - IV Contrast Only In Process Unspecified. EDMS 18:00 Patient requests food. Patient requests liquids. Patient requests pain medication. as6 19:44 Patient did not have IV access during this emergency room visit. intact, bleeding mb9 controlled, No redness/swelling at site. Pressure dressing applied. Administered Medications: 15:12 Drug: Ondansetron IVP 4 mg IVP once; over 2 minutes Route: IVP; Site: right forearm; mb9 17:57 Follow up: Response: No adverse reaction mb9 15:15 Drug: NS 0.9% IV 1000 ml IV at 1 bolus Per protocol; 1000 mL bolus Route: IV; Rate: 1 mb9 bolus; Site: right forearm; 17:57 Follow up: Response: No adverse reaction; IV Status: Completed infusion mb9 15:15 Drug: morphine IVP or IV 4 mg IVP once over 4 mins Route: IVP; Infused Over: 4 mins; mb9 Site: right forearm; 17:57 Follow up: Response: No adverse reaction mb9 17:01 Drug: NS 0.9% IV 1000 ml IV at 1 bolus Per protocol; 1000 mL bolus Route: IV; Rate: 1 mb9 bolus; Site: right forearm; 18:58 Follow up: Response: No adverse reaction; IV Status: Completed infusion mb9 17:01 Drug: Loperamide PO 4 mg PO once Route: PO; mb9 17:56 Follow up: Response: No adverse reaction mb9 18:13 Drug: Dicyclomine IM 20 mg IM once Route: IM; Site: right deltoid; mb9 18:13 Follow up: Response: No adverse reaction mb9 18:13 Drug: Ondansetron IVP 4 mg IVP once; over 2 minutes Route: IVP; Site: right forearm; mb9 18:58 Follow up: Response: No adverse reaction mb9 Medication: 14:15 VIS not applicable for this client. mb9 Outcome: 19:29 Discharge ordered by . sb4 19:44 Discharged to home ambulatory, mb9 19:44 Condition: stable 19:44 Discharge instructions given to patient, Instructed on discharge instructions, follow up and referral plans. Demonstrated understanding of instructions, follow-up care, 19:45 Patient left the ED. mb9 Signatures: Dispatcher [employer] EDMS Walter Dunne RN RN [id number] Sue Garcia PA-C PA-C sb4 Malou Renner RN RN mb9 Corrections: (The following items were deleted from the chart) 14:12 14:11 Allergies: Unable to obtain; mb9 mb9
--- NOTE | 2023-07-22 19:29 | EDPHYS ---
Physician Documentation [facility] Name: Alisa Avina Age: 68 yrs Sex: Female : 1955 Arrival Date: 07/22/2023 Time: 14:09 Bed 12 Private MD: ED Physician Elian Carbajal HPI: 07/21 14:16 This 68 yrs old Female presents to ER via EMS with complaints of Abdominal Pain. sb4 14:16 The patient presents with abdominal pain in the lower abdomen. Onset: The sb4 symptoms/episode began/occurred 4 day(s) ago. The symptoms do not radiate. Associated signs and symptoms: Pertinent positives: nausea, vomiting, and diarrhea. The symptoms are described as sharp, stabbing. Modifying factors: The symptoms are alleviated by nothing, the symptoms are aggravated by nothing. The patient has not experienced similar symptoms in the past. Historical: - Allergies: 14:11 No Known Allergies; mb9 - Home Meds: 14:11 lisinopril 10 mg Oral tab once daily [Active]; mb9 - PMHx: 14:11 Hypertensive disorder; mb9 - PSHx: 14:11 Cholecystectomy; mb9 - Immunization history:: Adult Immunizations up to date. - Infectious Disease History:: Denies. - Social history:: Smoking status: Patient denies any tobacco usage or history of. ROS: 14:16 Constitutional: Negative for fever, chills, and weight loss, sb4 14:16 Abdomen/GI: Positive for abdominal pain, nausea, vomiting, and diarrhea, 14:16 All other systems are negative, Exam: 14:16 Head/Face: Normocephalic, atraumatic. Eyes: Extra-ocular motions intact. Periorbital sb4 areas with no swelling, redness, or edema. ENT: Mucous membranes moist. Cardiovascular: Regular rate and rhythm with a normal S1 and S2. Respiratory: Lungs have equal breath sounds bilaterally, clear to auscultation and percussion. No rales, rhonchi or wheezes noted. No increased work of breathing, no retractions or nasal flaring. Skin: Warm, dry with normal turgor. Normal color with no rashes, no lesions, and no evidence of cellulitis. MS/ Extremity: Pulses equal, no cyanosis. Neurovascular intact. Full, normal range of motion. Neuro: Awake and alert, GCS 15, oriented to person, place, time, and situation. Motor strength 5/5 in all extremities. Sensory grossly intact. 14:16 Constitutional: The patient appears alert, awake, in obvious pain, 14:16 Abdomen/GI: Inspection: abdomen appears normal, Bowel sounds: normal, Palpation: abdomen is soft and non-tender, moderate abdominal tenderness, in the right lower quadrant and left lower quadrant, Vital Signs: 14:12 BP 166 / 91; Pulse 88; Resp 18; Temp 98.2(O); Pulse Ox 100% ; Weight 63.5 kg; Height 5 mb9 ft. 4 in. ; Pain 8/10; 15:26 BP 140 / 86; Pulse 90; Resp 18; Pulse Ox 100% on R/A; mb9 17:01 BP 145 / 87; Pulse 84; Resp 18; Pulse Ox 100% on R/A; mb9 18:43 BP 150 / 92; Pulse 95; Resp 18; Pulse Ox 100% on R/A; mb9 19:44 BP 160 / 88; Pulse 92; Resp 16; Pulse Ox 100% on R/A; mb9 14:12 Body Mass Index 24.03 (63.50 kg, 162.56 cm) mb9 14:12 Pain Scale: Adult mb9 MDM: 14:10 Patient medically screened. sb4 14:16 Differential diagnosis: diverticulitis, non-specific abd pain, urinary tract infection, sb4 colitis. 16:34 Independent interpretation of the following test(s) in the Emergency Department CT sb4 Scan: My interpretation is my interpretation of the abdomen pelvis CT images are- bladder wall mildly thickened, colon appears mildly distended with stool. 18:25 ED course: patient complaining of pain and nausea but states she is very hungry and is sb4 requesting food. 19:28 Data reviewed: vital signs, nurses notes, EMS record, lab test result(s), radiologic sb4 studies, and as a result, I will discharge patient. Counseling: I had a detailed discussion with the patient and/or guardian regarding the historical points, exam findings, and any diagnostic results supporting the discharge/admit diagnosis, lab results, radiology results, to return to the emergency department if symptoms worsen or persist or if there are any questions or concerns that arise at home. 07/21 14:15 Order name: CBC with Diff sb4 07/21 14:15 Order name: CMP; Complete Time: 15:34 sb4 07/21 14:15 Order name: Lipase; Complete Time: 15:34 sb4 07/21 14:15 Order name: Urinalysis w/ reflexes; Complete Time: 15:25 sb4 07/21 14:15 Order name: CT Abd/Pelvis - IV Contrast Only; Complete Time: 16:53 sb4 07/21 14:15 Order name: IV Saline Lock; Complete Time: 15:01 4 07/21 14:15 Order name: Labs collected and sent; Complete Time: 14:41 sb4 07/21 14:45 Order name: Labs - recollect needed: recollect light green top; Complete Time: 15:01 07/21 15:03 Order name: Labs - recollect needed: recollect lavender top; Complete Time: 15:07 07/21 17:42 Order name: PO challenge; Complete Time: 17:57 sb4 Administered Medications: 15:12 Drug: Ondansetron IVP 4 mg IVP once; over 2 minutes Route: IVP; Site: right forearm; mb9 17:57 Follow up: Response: No adverse reaction mb9 15:15 Drug: NS 0.9% IV 1000 ml IV at 1 bolus Per protocol; 1000 mL bolus Route: IV; Rate: 1 mb9 bolus; Site: right forearm; 17:57 Follow up: Response: No adverse reaction; IV Status: Completed infusion mb9 15:15 Drug: morphine IVP or IV 4 mg IVP once over 4 mins Route: IVP; Infused Over: 4 mins; mb9 Site: right forearm; 17:57 Follow up: Response: No adverse reaction mb9 17:01 Drug: NS 0.9% IV 1000 ml IV at 1 bolus Per protocol; 1000 mL bolus Route: IV; Rate: 1 mb9 bolus; Site: right forearm; 18:58 Follow up: Response: No adverse reaction; IV Status: Completed infusion mb9 17:01 Drug: Loperamide PO 4 mg PO once Route: PO; mb9 17:56 Follow up: Response: No adverse reaction mb9 18:13 Drug: Dicyclomine IM 20 mg IM once Route: IM; Site: right deltoid; mb9 18:13 Follow up: Response: No adverse reaction mb9 18:13 Drug: Ondansetron IVP 4 mg IVP once; over 2 minutes Route: IVP; Site: right forearm; mb9 18:58 Follow up: Response: No adverse reaction mb9 Disposition Summary: 07/22/23 19:29 Discharge Ordered Notes: Location: Home sb4 Problem: new sb4 Symptoms: have improved sb4 Condition: Stable sb4 Diagnosis - Other viral enteritis sb4 Followup: sb4 - With: Emergency Department - When: As needed - Reason: Trouble breathing, Worsening of condition Discharge Instructions: - Discharge Summary Sheet sb4 - Viral Gastroenteritis, Adult, [id number] sb4 Forms: - Work release form jb4 - Thank You Letter sb4 - Patient Portal Instructions sb4 - Leadership Thank You Letter sb4 Signatures: Dispatcher [employer] Gifty Tolbert Sophia, PA-C PA-C sb4 Malou Renner RN RN mb9 Corrections: (The following items were deleted from the chart) 14:12 14:11 Allergies: Unable to obtain; mb9 mb9
[2023-07-22 20:37] LABS: Blood Morphology Comment NOT SEEN (NOT SEEN); Platelet Estimate DECR; White Blood Cell Scan OK (OK)
[2023-07-23 04:49] VITALS: BP 160/88; TEMP 98.2; O2SAT 100
== END 2023-07-22 19:45 | disposition home or self-care (01) ==
LOC: ER 14:09
DX: A08.39 Other viral enteritis (principal); I10 Essential (primary) hypertension
CPT/HCPCS: 96361; 85025; 81001; 36415; 83690; 80053; 74177; 96375; 96372; 96374; 99285; Q9967; J0500; J2405 ×2; J7030 ×2